=== PATIENT | male | born 1955 | race Caucasian/White ===

== ENCOUNTER → 2019-05-16 | Day surgery (SDC) | payer OTHER ==
--- NOTE | 2019-05-15 13:22 | Pre Op History & Physical ---
CHIEF COMPLAINT: Left eustachian tube dysfunction and pulsatile tinnitus. HISTORY OF PRESENT ILLNESS: This 64-year-old male has left pulsatile tinnitus. The patient has no tinnitus until recently. The patient had multiple tubes in both ears before. The last set of tubes was a few years ago. The patient was noted to have a pin hole perforation on the left side with tube in place on the right. Carotid Doppler that was done showed the patient has no significant narrowing of the carotid artery. Audiogram that was performed showed the patient has sloping high-frequency [id number] sensorineural hearing loss. Speech discrimination 84% on the right side and 92% on the left. He has a flat tympanogram on both sides. The patient's condition has been treated with antibiotics, topical otic drops with no improvement. REVIEW OF SYSTEMS: System review showed no recent cardiovascular, respiratory, or GI problem. PAST MEDICAL HISTORY: The patient has history of type 2 diabetes and hypertension. He has a history of neuropathy. PAST SURGICAL HISTORY: The patient had previous cataract repair, hernia repair, and tonsillectomy and previous bilateral myringotomy and tubes. ALLERGIES: HE HAS NO KNOWN ALLERGIES. MEDICATIONS: He is on: 1. Insulin. 2. Metformin. 3. Norvasc. 4. Accupril. 5. Atenolol. SOCIAL HISTORY: He smokes about a pack a day. He is a nondrinker. FAMILY HISTORY: Noncontributory. PHYSICAL EXAMINATION: VITAL SIGNS: On examination, the patient's vital signs were within normal limits. HEENT: Ear exam showed normal tympanic membrane on the left side. No obvious perforation was noted. Tube in place in the right ear. It was an Pacheco grommet tube. Nasal exam show deviation nasal septum on left side with a 20% spur. Oropharynx and oral cavity showed no obvious abnormality. He has no tonsils and Mallampati level 2. NECK: Showed no lymph node or thyroid palpable. CHEST: Showed good air entry bilaterally. CARDIOVASCULAR: Showed S1, S2. No murmur noted. ASSESSMENT AND PLAN: Mr. Alcantar has last aural fullness and pulsatile tinnitus, which has been resistant to conservative therapy. The suggested treatment is left myringotomy tube with T-tube placement and other necessary procedure. The patient declined changing out the tube on the right ear. This complication of procedure includes, but not limited to bleeding, infection, TM perforation, persistent drainage from the ear, hearing loss, persistent recurrence of the problem. The alternative will be continue observation, continue antibiotic therapy, topical nasal steroid therapy, systemic steroid therapy, myringotomy and tubes in the office setting. I have emphasized to the patient that myringotomy and tubes in the left ear may not improve his pulsatile tinnitus on the left. The patient has elected to undergo surgical procedure. MD HARJIT Burch/MODL /[id number]
[~2019-05-16] MED LIST: AMLODIPINE BESY10 MG PO; ATENOLOL-CHLOR1 EAC1 PO; DEXAMETHASONE SOD PHOS INJ 4 MG/ML VIAL ONE; FENTANYL CITRATE/PF 100MCG/2 ML INJ ONE; LANTUS 3ML100 UNITS/ INJ; LIDOCAINE HCL 2% LOCAL INJ 5 ML SDV VIAL INJ ONE; METFORMIN HCL500 MG PO; MIDAZOLAM HCL 2 MG/2 ML VIAL ONE; OFLOXACIN 0.3% (OTIC SOL) 5 ML BTL ONE; ONDANSETRON HCL INJ 2MG/ML 2ML 2 MG/ML VIAL ONE; PROPOFOL IV EMULSION 10 MG/ML 20 ML VIAL ONE; QUINAPRIL HCL20 MG PO; SEVOFLURANE INHAL SOLN 250 ML PEN BTL ONE; [UNRECOGNIZED DRUG - OTHER] SQ; levothyroxine PO
--- NOTE | 2019-05-16 08:34 | Diagnostic Imaging Report ---
EXAM: CHEST 2 VIEWS DATE: 05/16/2019 12:00 AM INDICATION: Surgery COMPARISON: None FINDINGS: The trachea is midline. The lungs are symmetrically expanded without evidence for focal consolidation, pneumothorax, or significant pleural effusion. The cardiomediastinal silhouette and pulmonary vasculature are within normal limits. No acute osseous abnormality is identified. The soft tissues are unremarkable. IMPRESSION: No acute cardiopulmonary process identified. Signed by: Dr. Zay Maher MD on 05/16/2019 8:30 AM
[2019-05-16 10:11] VITALS: BP 101/67
--- NOTE | 2019-05-16 13:12 | Operative Report ---
DATE OF PROCEDURE: 05/16/2019 SURGEON: Berny Lebron MD CHIEF COMPLAINT: Eustachian tube dysfunction on the left side. POSTOPERATIVE DIAGNOSIS: Eustachian tube dysfunction on the left side. OPERATIVE PROCEDURE: Myringotomy and tubes in the left ear with examination under anesthesia of the right ear. ANESTHESIA: Dr. Huertas. INDICATIONS: This 64 years old male has a history of eustachian tube dysfunction and otitis media. The patient had previous myringotomy and tubes on both ear before. The right tube has been in the ear for many years and has not been extruded. The left ear tube has extruded with a small pinhole. The patient has persistent ringing in the ear with pressure sensation. On examination, there was noted to have Pacheco grommet tube in the right ear with tiny pinhole in the anterior-inferior quadrant of the TM. It was noted to have an Pacheco grommet tube in the right ear. On the left ear, he was noted to have a tiny pinhole in the anterior-inferior quadrant. Hearing test shows moderate to severe sloping high-frequency sensorineural hearing loss. The patient had a flat tympanogram on both sides. One of the other symptoms that the patient has been experiencing is pulsatile tinnitus mainly on the left side that comes and goes. It was decided that myringotomy and tube in the left ear with a T-tube, examination under anesthesia on the right ear, and other necessary procedure will be beneficial for him. The patient has emphasized that he did not want the Pacheco grommet tube on the right side to be disturbed at this point. I have told the patient that the pulsatile tinnitus may not change with putting another tube in the left ear. DESCRIPTION OF PROCEDURE: The patient was taken to the operating room and put under general anesthesia. The right ear was examined. Ear canal was debrided. The Pacheco grommet tube was noted to be in place. This was not disturbed. The TM was not disturbed on the right side. The left ear was examined. The ear canal was debrided. A small pinhole was noted in the anterior-inferior quadrant. No other abnormality was noted in the TM. The pinhole was enlarged using the myringotomy knife. A T-tube was inserted into the myringotomy. No effusion was noted in the left middle ear cleft. The patient tolerated the above procedure well with minimal blood loss. He was able to be transferred to the recovery room in a stable condition. MD CECY Burch/DESTINY /[id number]
== END | disposition home or self-care (01) ==
LOC: OR 06:16
PROVIDERS: ATTEND Otolaryngology Otolaryngology/Facial Plastic Surgery
DX: H69.82 Other specified disorders of Eustachian tube, left ear (principal); H90.3 Sensorineural hearing loss, bilateral; H93.A2 Pulsatile tinnitus, left ear; G47.33 Obstructive sleep apnea (adult) (pediatric); E11.9 Type 2 diabetes mellitus without complications; I10 Essential (primary) hypertension; G62.9 Polyneuropathy, unspecified; F17.210 Nicotine dependence, cigarettes, uncomplicated; Z79.4 Long term (current) use of insulin; Z79.84 Long term (current) use of oral hypoglycemic drugs
CPT/HCPCS: 69399; 69436; 71046; 93005; C1878; J1100; J2001; J2250; J2405; J2704; J3010